=== PATIENT | male | born 1960 | race Caucasian/White ===

== ENCOUNTER 2016-12-30 20:12 | Inpatient (IN) | payer MEDICARE, BC ==
[~2016-12-30] VITALS: Ht 177.8 cm; Wt 142.0 kg
[~2016-12-30 20:12] MED LIST: ASPIRIN 8181 MG PO; BYETTA10 SC; DILTIAZEM120 M1 PO; FINASTERIDE5 MG PO; FUROSEMIDE40 MG PO; GLYBURIDE5 M1 PO; INVOKANA300 MG PO; K-DUR/KLOR-CON20 MEQ PO; LANOXIN0.25 MG PO; LANTUS100 MG/ML SC; LIPITOR40 MG PO; LOPRESSOR50 M1 PO; METOLAZONE2.5 MG PO; NOVOLIN 70/30 INNLT SC; NOVOLIN R U-1001 ML SC; PANTOPRAZOLE SO40 M1 PO; PLAVIX75 MG PO; XOPENEX0.63 MG IN
[2016-12-30 22:09] LABS: HEMATOCRIT 38.9 % (39.0-50.0); HEMOGLOBIN 13.2 g/dl (14.0-18.0); IMMATURE GRANULOCYTES 1.2 % (0.0-1.0); MEAN CELL VOLUME 90.3 fL CALC (80.0-100.0); MEAN CORPUSCULAR HGB 30.6 pG CALC (26.0-32.0); MEAN CORPUSCULAR HGB CONC 33.9 g/L CALC (32.0-36.0); PLATELET COUNT 101 thou/uL (130-400); RED BLOOD COUNT 4.31 mill/uL (4.70-6.10); RED CELL DISTRI WIDTH 14.4 % (11.5-15.5)
[2016-12-30 22:17] LABS: MANUAL DIFFERENTIAL YES
[2016-12-30 22:22] LABS: BILIRUBIN, TOTAL 1.9 mg/dL (0.0-1.4); CALCIUM 9.1 mg/dL (8.4-10.2); CREATININE 2.1 mg/dL (0.7-1.3); POTASSIUM 4.1 mmol/l (3.5-5.1); TOTAL PROTEIN 7.6 g/dL (6.3-8.2)
[2016-12-30 22:41] LABS: BAND 54 % (0-8)
[2016-12-31 00:38] LABS: URINE BILIRUBIN - DIPSTICK NEGATIVE (NEGATIVE); URINE BLOOD DIPSTICK NEGATIVE (NEGATIVE); URINE CLARITY CLEAR; URINE COLOR YELLOW; URINE GLUCOSE - DIPSTICK NEGATIVE (NEGATIVE); URINE KETONE NEGATIVE (NEGATIVE); URINE LEUK ESTERASE NEGATIVE (NEGATIVE); URINE NITRITE - DIPSTICK NEGATIVE (Negative); URINE PH 5.5 (4.5-8.0); URINE PROTEIN - DIPSTICK NEGATIVE (NEG-TRACE); URINE UROBILINOGEN - DIPSTICK 0.2 E.U./dL (0.2)
[2016-12-31] MEDS ORDERED: TRIGLIDE160 MG PO (00:43)
[2016-12-31] MEDS ORDERED: GABAPENTIN100 MG PO (00:44)
[2016-12-31] MEDS ORDERED: SPIRONOLACTONE25 MG PO (00:44)
[2016-12-31] MEDS ORDERED: VICTOZA18 MG/3 ML SC (00:45)
[2016-12-31] MEDS ORDERED: PRECOSE50 MG PO (00:45)
[2016-12-31 01:25] VITALS: BP 149/76
[2016-12-31 06:39] VITALS: BP 155/76
[2016-12-31 06:54] LABS: HEMATOCRIT 35.7 % (39.0-50.0); HEMOGLOBIN 12.1 g/dl (14.0-18.0); MEAN CELL VOLUME 89.9 fL CALC (80.0-100.0); MEAN CORPUSCULAR HGB 30.5 pG CALC (26.0-32.0); MEAN CORPUSCULAR HGB CONC 33.9 g/L CALC (32.0-36.0); RED BLOOD COUNT 3.97 mill/uL (4.70-6.10); RED CELL DISTRI WIDTH 14.5 % (11.5-15.5)
[2016-12-31 07:13] LABS: CALCIUM 8.5 mg/dL (8.4-10.2); CREATININE 1.7 mg/dL (0.7-1.3); MAGNESIUM 1.4 mg/dL (1.6-2.3); POTASSIUM 3.6 mmol/l (3.5-5.1)
[2016-12-31 07:14] LABS: DIGOXIN 0.9 ng/mL (0.8-2.0)
[2016-12-31 13:44] LABS: INFLUENZA A NONE DETECTED (NONE DETECT); INFLUENZA B NONE DETECTED (NONE DETECT)
[2016-12-31 15:24] VITALS: BP 132/42
[2016-12-31 16:00] VITALS: BP 104/44
[2016-12-31 23:47] VITALS: BP 96/64
[2016-12-31 23:50] VITALS: BP 138/86
[2017-01-01 05:19] LABS: CALCIUM 8.2 mg/dL (8.4-10.2); CREATININE 1.6 mg/dL (0.7-1.3); MAGNESIUM 1.6 mg/dL (1.6-2.3); POTASSIUM 4.5 mmol/l (3.5-5.1)
[2017-01-01 05:23] VITALS: BP 133/59
[2017-01-01 05:59] LABS: HEMATOCRIT 38.6 % (39.0-50.0); HEMOGLOBIN 12.8 g/dl (14.0-18.0); IMMATURE GRANULOCYTES 0.8 % (0.0-1.0); MEAN CELL VOLUME 90.6 fL CALC (80.0-100.0); MEAN CORPUSCULAR HGB CONC 33.2 g/L CALC (32.0-36.0); RED BLOOD COUNT 4.26 mill/uL (4.70-6.10)
[2017-01-01 06:27] LABS: BAND 40 % (0-8); MANUAL DIFFERENTIAL YES; PLATELET COUNT 103 thou/uL (130-400)
[2017-01-01 06:28] LABS: PLATELET ESTIMATE SLIGHT DECREASE
[2017-01-01 07:50] VITALS: BP 131/64
[2017-01-01 11:00] VITALS: BP 129/65
[2017-01-01] MEDS ORDERED: FLORASTOR250 M1 PO (11:48)
[2017-01-01] MEDS ORDERED: DOXYCYCL HYC100 MG PO (11:48)
[2017-01-01] MEDS ORDERED: AUGMENTIN875TAB PO (11:48)
== END 2017-01-01 13:09 | disposition home or self-care (01) | DRG 867 ==
LOC: ED 20:12 → ED-I 21:30 → ED 12-31 00:54 → MS2 12-31 00:55
PROVIDERS: Emergency Medicine; Nurse Practitioner Family; ADMIT Internal Medicine; ATTEND Internal Medicine
DX: A28.0 Pasteurellosis (principal); J18.9 Pneumonia, unspecified organism; N17.9 Acute kidney failure, unspecified; I11.0 Hypertensive heart disease with heart failure; I50.22 Chronic systolic (congestive) heart failure; J44.0 Chronic obstructive pulmonary disease with (acute) lower respiratory infection; L03.011 Cellulitis of right finger; E11.9 Type 2 diabetes mellitus without complications; S61.256A Open bite of right little finger without damage to nail, initial encounter; E83.42 Hypomagnesemia; E86.0 Dehydration; I65.21 Occlusion and stenosis of right carotid artery; M19.90 Unspecified osteoarthritis, unspecified site; W55.01XA Bitten by cat, initial encounter; Y92.009 Unspecified place in unspecified non-institutional (private) residence as the place of occurrence of the external cause; Z86.74 Personal history of sudden cardiac arrest; Z95.1 Presence of aortocoronary bypass graft; Z95.810 Presence of automatic (implantable) cardiac defibrillator; Z98.84 Bariatric surgery status; Z79.4 Long term (current) use of insulin

== ENCOUNTER 2020-07-20 06:32 | Emergency (ER) | payer MEDICARE, BC ==
[~2020-07-20] VITALS: Ht 177.8 cm; Wt 137.7 kg
[~2020-07-20 06:32] MED LIST changes: +AUGMENTIN875TAB PO; +DOXYCYCL HYC100 MG PO; +FLORASTOR250 M1 PO; +GABAPENTIN100 MG PO; +PRECOSE50 MG PO; +SPIRONOLACTONE25 MG PO; +TRIGLIDE160 MG PO; +VICTOZA18 MG/3 ML SC
[2020-07-20 07:03] LABS: URINE BILIRUBIN - DIPSTICK NEGATIVE (NEGATIVE); URINE BLOOD DIPSTICK NEGATIVE (NEGATIVE); URINE COLOR YELLOW; URINE GLUCOSE - DIPSTICK NEGATIVE (NEGATIVE); URINE KETONE NEGATIVE (NEGATIVE); URINE LEUK ESTERASE NEGATIVE (NEGATIVE); URINE PROTEIN - DIPSTICK NEGATIVE (NEG-TRACE); URINE SPECIFIC GRAVITY 1.015
[2020-07-20 07:04] LABS: URINE NITRITE - DIPSTICK NEGATIVE (Negative)
[2020-07-20 07:05] LABS: IMMATURE GRANULOCYTES 0.8 % (0.0-5.0); MEAN CORPUSCULAR HGB 31.4 pG CALC (26.0-32.0); MEAN CORPUSCULAR HGB CONC 30.7 g/dL CAL (32.0-36.0); NEUT# 5.02 thou/uL (1.82-7.42); RED BLOOD COUNT 2.96 mill/uL (4.70-6.10)
[2020-07-20 07:08] LABS: HEMATOCRIT 30.3 % (39.0-50.0); HEMOGLOBIN 9.3 g/dl (14.0-18.0); MEAN CELL VOLUME 102.4 fL CALC (80.0-100.0)
[2020-07-20 07:22] LABS: CREATININE 1.5 mg/dL (0.7-1.3); MAGNESIUM 1.7 mg/dL (1.6-2.3); POTASSIUM 4.3 mmol/l (3.5-5.1); TOTAL PROTEIN 7.9 g/dL (6.3-8.2)
[2020-07-20 07:23] LABS: BILIRUBIN, TOTAL 0.7 mg/dL (0.0-1.4)
[2020-07-20 07:52] LABS: TSH, 3RD GENERATION 2.34 uIU/mL (0.47 - 4.68)
[2020-07-20 08:37] LABS: ACT PARTIAL THROMBO TIME 18.7 SECONDS (20.0-32.5)
[2020-07-20 08:44] LABS: INTERNATIONAL NORMALIZED RATIO 1.1 RATIO (0.7-1.3); PROTHROMBIN TIME 11.6 SECONDS (9.0-12.5)
[2020-07-20 09:09] VITALS: BP 164/63
== END 2020-07-20 09:11 ==
LOC: ED 06:32
PROVIDERS: Emergency Medicine
PROC: 0T9B70Z Drainage of Bladder with Drainage Device, Via Natural or Artificial Opening (ICD-10-PCS; principal; 2020-07-20)
DX: K92.1 Melena (principal); E87.2 Acidosis; E72.20 Disorder of urea cycle metabolism, unspecified; R41.82 Altered mental status, unspecified; I13.10 Hypertensive heart and chronic kidney disease without heart failure, with stage 1 through stage 4 chronic kidney disease, or unspecified chronic kidney disease; I50.9 Heart failure, unspecified; E11.22 Type 2 diabetes mellitus with diabetic chronic kidney disease; N18.30 Chronic kidney disease, stage 3 unspecified; J44.9 Chronic obstructive pulmonary disease, unspecified; I65.21 Occlusion and stenosis of right carotid artery; I25.10 Atherosclerotic heart disease of native coronary artery without angina pectoris; Z95.1 Presence of aortocoronary bypass graft; Z86.74 Personal history of sudden cardiac arrest; Z95.810 Presence of automatic (implantable) cardiac defibrillator; Z79.4 Long term (current) use of insulin; Z20.822 Contact with and (suspected) exposure to COVID-19
CPT/HCPCS: J2060